=== PATIENT | male | born 1990 | race Caucasian/White ===

== ENCOUNTER 2016-11-20 16:29 | Emergency (ER) | payer OTHER ==
[~2016-11-20 16:29] MED LIST: ADVIL200 M1 PO; FLONASE ALLERG9.9 ML NS; KEFLEX500 MG PO; LEVAQUIN; LEXAPRO10 M1 PO
[2016-11-20] MEDS ORDERED: KLONOPIN1 M1 PO (16:40)
[2016-11-20] MEDS ORDERED: LEXAPRO20 M2 PO (16:40)
[2016-11-20] MEDS ORDERED: LAMICTAL100 M2 PO (16:41)
[2016-11-20 17:02] LABS: BASO % 0.1 % (0-2); EOS % 0.1 % (0-7); HCT-HEMATOCRIT 45.8 % (36.0-53.5); HGB-HEMOGLOBIN 16.2 gm/dl (13.5-17.0); IMMATURE GRANULOCYTES ABSOLUTE 0.03 tho/cmm (0-0.03); IMMATURE GRANULOCYTES PERCENT 0.2 % (0-0.3); MCH (MEAN CORPUSCULAR HGB) 29.9 pg (28.0-32.0); MCHC MEAN CORPUSCULAR HGB CONC 35.4 % (32.0-36.0); MCV (MEAN CELL VOLUME) 84.7 fl (82.0-96.0); MEAN PLATELET VOLUME 11.5 cmc (9.4-12.4); MONO % 3.2 % (0-12); MONOCYTE ABSOLUTE COUNT 0.5 tho/cmm (0.0-1.2); NEUTROPHIL ABSOLUTE COUNT 13.3 tho/cmm (1.6-8.0); NEUTROPHIL-AUTOMATED 13.3 tho/cmm (1.6-8.0); NEUTROPHILS % 89.4 % (40-80); PLATELET COUNT 249 tho/cmm (150-450); RED BLOOD COUNT 5.41 mil/cmm (4.40-5.70); RED CELL DISTRIBUTION WIDTH 11.6 % (12.4-16.4); WHITE BLOOD COUNT 14.9 tho/cmm (4.0-10.0)
[2016-11-20 17:07] LABS: URINE APPEARANCE CLEAR; URINE BILIRUBIN NEGATIVE (NEG); URINE BLOOD LARGE (NEG); URINE COLOR YELLOW; URINE GLUCOSE (UA) NEGATIVE (NEG); URINE KETONE LARGE (NEG); URINE LEUKOCYTE ESTERASE POSITIVE (NEG); URINE NITRITE NEGATIVE (NEG); URINE PROTEIN MODERATE (NEG); URINE SPECIFIC GRAVITY 1.015 (1.003-1.030)
[2016-11-20 17:12] LABS: URINE MUCUS 2+
[2016-11-20 17:13] LABS: URINE WBC 0-2 /[HPF] (0-5)
[2016-11-20 17:14] LABS: ANION GAP 13 mmol/L (0-20); BLOOD UREA NITROGEN 12 mg/dl (6-24); CARBON DIOXIDE-VENOUS 27 mmol/L (22-32); CHLORIDE 102 mmol/l (96-110); CREATININE 1.31 mg/dl (0.60-1.30); GLUCOSE 135 mg/dL (70-110); SODIUM 138 mmol/L (135-145); eGFR VALUE FOR BLACK 86 mL/Min
[2016-11-20] MEDS ORDERED: HYDROXYZINE HCL25 M1 PO (17:15)
[2016-11-20 17:32] LABS: ALB/GLOB RATIO 1.3 (0.8-2.0); ALBUMIN 4.9 g/dl (3.5-5.0); ALKALINE PHOSPHATASE 76 U/L (33-138); ALT/SGPT 39 U/L (12-78); BILIRUBIN,TOTAL 0.6 mg/dl (0.0-1.5); LIPASE 149 U/L (73-393)
[2016-11-20 17:34] LABS: AST/SGOT 39 U/L (10-40); BILIRUBIN,DIRECT <0.1 mg/dl (0.0-0.3); BILIRUBIN,INDIRECT 0.5 mg/dL (0.0-1.0)
[2016-11-20] MEDS ORDERED: NORCO 5-325 TA1 EACH PO (19:16)
[2016-11-20] MEDS ORDERED: ZOFRAN ODT4 MG PO (19:16)
[2016-11-20] MEDS ORDERED: FLOMAX0.4 M1 PO (19:16)
== END 2016-11-20 19:49 ==
LOC: EDMED 16:29
PROVIDERS: Emergency Medicine
DX: N13.2 Hydronephrosis with renal and ureteral calculous obstruction (principal); F32.9 Major depressive disorder, single episode, unspecified; Z98.890 Other specified postprocedural states; Z88.0 Allergy status to penicillin; Z88.1 Allergy status to other antibiotic agents
CPT/HCPCS: J1170; J2270; J7030; Q9967